=== PATIENT | male | born 1945 ===

== ENCOUNTER → 2019-04-27 13:42 | Outpatient (REF) | payer MEDICARE, SELFPAY | LOC: ANHLAB 13:42 | PROVIDERS: Visit Provider Nurse Practitioner Family | DX: C44.519 Basal cell carcinoma of skin of other part of trunk (principal) | CPT/HCPCS: 88305 ==

== ENCOUNTER → 2019-10-12 07:59 | Outpatient (REF) | payer MEDICARE, SELFPAY | LOC: ANHLAB 07:59 | PROVIDERS: Visit Provider Nurse Practitioner Family | DX: C44.519 Basal cell carcinoma of skin of other part of trunk (principal) | CPT/HCPCS: 88305; 88331 ==

== ENCOUNTER → 2021-05-21 16:31 | Outpatient (REF) | payer MEDICARE, SELFPAY | LOC: ANHLAB 16:31 | PROVIDERS: PCP Family Medicine; Visit Provider Nurse Practitioner | DX: C44.319 Basal cell carcinoma of skin of other parts of face (principal); C44.619 Basal cell carcinoma of skin of left upper limb, including shoulder; C44.612 Basal cell carcinoma of skin of right upper limb, including shoulder | CPT/HCPCS: 88305 ==

== ENCOUNTER → 2021-07-01 07:15 | Outpatient (REF) | payer MEDICARE, SELFPAY | LOC: ANHLAB 07:15 | PROVIDERS: PCP Family Medicine; Visit Provider Nurse Practitioner | DX: C44.319 Basal cell carcinoma of skin of other parts of face (principal); C44.612 Basal cell carcinoma of skin of right upper limb, including shoulder; C44.619 Basal cell carcinoma of skin of left upper limb, including shoulder | CPT/HCPCS: 88305; 88331 ==

== ENCOUNTER → 2021-07-23 16:18 | Outpatient (REF) | payer MEDICARE, SELFPAY | LOC: ANHLAB 16:18 | PROVIDERS: PCP Family Medicine; Visit Provider Nurse Practitioner | DX: L72.0 Epidermal cyst (principal) | CPT/HCPCS: 88304 ==

== ENCOUNTER 2022-02-25 07:00 | Outpatient (NON) | payer MEDICARE, SELFPAY | END 2022-02-25 07:01 | disposition home or self-care (01) | LOC: ANHLAB 02-26 12:17 | PROVIDERS: PCP Family Medicine; Visit Provider Nurse Practitioner | DX: C44.629 Squamous cell carcinoma of skin of left upper limb, including shoulder (principal) | CPT/HCPCS: 88305 ==

== ENCOUNTER 2022-03-17 14:17 | Outpatient (NON) | payer MEDICARE, SELFPAY | END 2022-03-17 14:18 | disposition home or self-care (01) | LOC: ANHLAB 14:17 | PROVIDERS: PCP Family Medicine; Visit Provider Nurse Practitioner | DX: C44.629 Squamous cell carcinoma of skin of left upper limb, including shoulder (principal) | CPT/HCPCS: 88305; 88331; 88332 ==

== ENCOUNTER 2023-03-10 07:00 | Outpatient (NON) | payer MEDICARE, SELFPAY | END 2023-03-10 07:01 | disposition home or self-care (01) | LOC: ANHLAB 03-11 12:58 | PROVIDERS: PCP Family Medicine; Visit Provider Nurse Practitioner | DX: C44.41 Basal cell carcinoma of skin of scalp and neck (principal) | CPT/HCPCS: 88305 ==